=== PATIENT | female | born 1945 | race Caucasian/White ===

== ENCOUNTER → 2016-08-02 | Outpatient (CLI) | payer OTHER ==
[~2016-08-02] MED LIST: ALBUTEROL2.5 MG/3 M IH; ASPIRIN EC81 M1 PO; CARDIZEM CD240 MG PO; CARDIZEM LA PO; DETROL LA4 MG PO; FISH OIL 1,0001 EAC5 PO; LIPITOR20 MG PO; LUMIGAN2.5 M1 OP; MAGNESIUM OXID400 MG PO; MULTI-VITAMIN1 EAC5 PO; PREMARIN0.625 MG PO; PRESERVISION A1 EAC2 PO
== END ==
LOC: RAD 02:55
DX: Z12.31 Encounter for screening mammogram for malignant neoplasm of breast (principal)